=== PATIENT | male | born 1985 | race Caucasian/White ===

== ENCOUNTER 2020-01-22 12:00 | Emergency (ER) | payer OTHER ==
--- NOTE | 2020-01-22 13:04 | XR ---
EXAMINATION TYPE: XR chest 2V DATE OF EXAM: 01/22/2020 COMPARISON: NONE HISTORY: Cough TECHNIQUE: Frontal and lateral views of the chest are obtained. FINDINGS: There is no focal air space opacity, pleural effusion, or pneumothorax seen. The cardiac silhouette size is within normal limits. The osseous structures are intact, there is a spinal curva ture. IMPRESSION: No acute cardiopulmonary process.
[2020-01-22] MEDS ORDERED: AZITHROMYCIN 500 MG TAB PO STA (13:06)
--- NOTE | 2020-01-22 13:13 | ED ---
General Adult HPI - General Chief complaint: ENT Stated complaint: Cough Time Seen by Provider: 01/22/20 12:22 Source: patient, RN notes reviewed, old records reviewed Mode of arrival: ambulatory Limitations: no limitations - History of Present Illness Initial comments: 34-year-old male patient passed history of smoking proceeded chief complaint of 3 days of productive cough. Patient reports that he is coughing up yellow mucus. Denies any shortness of breath. Denies any focal areas of pain. Denies any fevers. 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 He denies any shortness of breath. He denies any other complaints. Systemic: Pt denies fatigue, fever/chills, rash. Pt denies weakness, night sweats, weight loss. Neuro: Pt denies headache, visual disturbances, syncope or pre-syncope. HEENT: Pt denies ocular discharge or irritation, otalgia, rhinorrhea, pharyngitis or notable lymphadenopathy. Cardiopulmonary: Pt denies chest pain, SOB, heart palpitations, dyspnea on exertion. Abdominal/GI: Pt denies abdominal pain, n/v/d. : Pt denies dysuria, burning w/ urination, frequency/urgency. Denies new onset urinary or bowel incontinence. MSK: Pt denies myalgia, loss of strength or function in extremities. Neuro: Pt denies new onset weakness, paresthesias. - Related Data Previous Rx's Medication Instructions Recorded Azithromycin [Zithromax Z-pack] 0 mg PO DIRECTED #6 tab 01/22/20 Allergies Allergy/AdvReac Type Severity Reaction Status Date / Time No Known Allergies Allergy Verified 01/22/20 12:19 Review of Systems ROS Statement: Those systems with pertinent positive or pertinent negative responses have been documented in the HPI. ROS Other: All systems not noted in ROS Statement are negative. Past Medical History Past Medical History: No Reported History History of Any Multi-Drug Resistant Organisms: None Reported Past Surgical History: Orthopedic Surgery Past Psychological History: No Psychological Hx Reported Smoking Status: Current every day smoker Past Alcohol Use History: Occasional Past Drug Use History: Marijuana General Exam - General Exam Comments Initial Comments: Constitutional: NAD, AOX3, Pt has pleasant affect. HEENT: NC/AT, trachea midline, neck supple, no lymphadenopathy. External ears appear normal, without discharge. Mucous membranes moist. Eyes PERRLA, EOM intact. There is no scleral icterus. No pallor noted. Cardiopulmonary: RRR, no murmurs, rubs or gallops, no JVD noted. Lungs CTAB in anterior and posterior araiza. No peripheral edema. Abdominal exam: Abdomen soft and non-distended. Abdomen non-tender to palpation in all 4 quadrants. Bowel sounds active in LLQ. No hepatosplenomegaly. No ecchymosis Neuro: CN II-XII grossly intact. No nuchal rigidity. No raccon eyes, no priest sign, no hemotympanum. No cervical spinal tenderness. MSK: Full active ROM in upper and lower extremities, 5/5 stregnth. Limitations: no limitations Course Vital Signs 01/22/20 12:16 Temperature 98 F Pulse Rate 77 Respiratory 18 Rate Blood Pressure 115/62 O2 Sat by Pulse 98 Oximetry Medical Decision Making - Medical Decision Making 34-year-old male patient presents to ED for evaluation of cough for the last 3 days. Patient is coughing up yellow sputum. Denies any known sick contacts. Patient also stable, afebrile. Physical exam and chest x-ray are negative for acute process. Patient will be tested for coronavirus. Will be placed on azithromycin due to him being a smoker with a change in productive cough. Will follow up with primary care provider and coronavirus test for return to work. Will turn to ER if condition worsens. Case discussed with Dr. Cordova. Disposition Clinical Impression: Cough Disposition: HOME SELF-CARE Condition: Stable Instructions (If sedation given, give patient instructions): Acute Cough (ED) Additional Instructions: Follow-up with primary care provider tomorrow, take medication as directed. Return to ER if condition worsens. Prescriptions: Azithromycin [Zithromax Z-pack] 0 mg PO DIRECTED #6 tab Is patient prescribed a controlled substance at d/c from ED?: No Referrals: Brian Pepper MD [Primary Care Provider] - 1-2 days
[2020-01-22 13:23] VITALS: BP 113/82; PULSE 59; RESP 16; TEMP 97.9
== END 2020-01-22 13:23 | disposition home or self-care (01) ==
LOC: EC 12:00
DX: R05 Cough (principal); F17.200 Nicotine dependence, unspecified, uncomplicated; Z20.828 Contact with and (suspected) exposure to other viral communicable diseases
CPT/HCPCS: 99284; 71046; U0003